=== PATIENT | male | born 1975 | race Caucasian/White ===

== ENCOUNTER → 2017-11-01 | Outpatient (CLI) | payer OTHER ==
[~2017-11-01] MED LIST: PPTBS
--- NOTE | 2017-11-01 19:10 | DIAGNOSTIC IMAGING REPORT ---
R TIBIA/FIBULA 2 VIEWS ROUTINE CLINICAL HISTORY: INJURY OF LOWER LEG COMPARISON: None FINDINGS: No acute fracture of the right tibia or fibula is identified. Talar dome is intact. IMPRESSION: No acute fracture of the right tibia or fibula. Electronically signed by: Raymond Ware M.D. 11/01/2017 7:08 PM Dictated Date/Time: 11/01/2017 7:07 PM
--- NOTE | 2017-11-01 19:37 | DIAGNOSTIC IMAGING REPORT ---
LEFT TIBIA/FIBULAR 2 VIEWS HISTORY: INJURY OF LOWER LEG COMPARISON: None. FINDINGS: There is no fracture or dislocation. Soft tissues are unremarkable. There is an orthopedic screw within the proximal tibia from prior ACL graft repair. IMPRESSION: No fractures. Electronically signed by: Trino Mcdonough M.D. 11/01/2017 7:36 PM Dictated Date/Time: 11/01/2017 7:33 PM
== END | disposition home or self-care (01) ==
LOC: C.RAD 18:47
PROVIDERS: ATTEND Family Medicine
DX: S89.90XA Unspecified injury of unspecified lower leg, initial encounter (principal); V89.2XXA Person injured in unspecified motor-vehicle accident, traffic, initial encounter